=== PATIENT | male | born 1955 | race Caucasian/White ===

== ENCOUNTER 2020-04-28 11:53 | Inpatient (IN) | payer OTHER, SELFPAY ==
[~2020-04-28] VITALS: Ht 172.7 cm; Wt 88.5 kg
[2020-04-28 05:48] VITALS: BP 118/65
[2020-04-28 12:11] VITALS: BP 123/66
[2020-04-28] MEDS ORDERED: LACTATED RINGERS 1,000 ML IV ONE (13:00)
[2020-04-28 13:23] LABS: BASOPHILS # (AUTO) 0.1 K/uL (0.00-0.22); EOSINOPHILS # (AUTO) 0.5 K/uL (0-0.4); EOSINOPHILS % (AUTO) 5.6 % (0.0-4.0); HEMATOCRIT 31.2 % (36-52); HEMOGLOBIN 10.1 g/dL (12.0-18.0); LYMPHOCYTES # (AUTO) 0.7 K/uL (2.0-11.5); LYMPHOCYTES % (AUTO) 7.4 % (20.5-51.1); MEAN CORPUSCULAR HEMOGLOBIN 28 pg (27-31); MEAN CORPUSCULAR HGB CONC 32 g/dL (33-37); MEAN CORPUSCULAR VOLUME 86.4 fL (80-94); MONOCYTES # (AUTO) 0.4 K/uL (0.8-1.0); MONOCYTES % (AUTO) 4.5 % (1.7-9.3); NEUTROPHILS # (AUTO) 7.2 K/uL (1.8-7.7); NEUTROPHILS % (AUTO) 81.5 % (42.2-75.2); PLATELET COUNT (AUTO) 430 K/uL (140-450); RED BLOOD CELL COUNT(AUTO) 3.61 MIL/uL (4.20-6.10); RED CELL DISTRIBUTION WIDTH 16.1 % (11.6-13.7); WHITE BLOOD COUNT (AUTO) 8.9 K/uL (4.8-10.8)
[2020-04-28] MEDS ORDERED: cefTRIAXone 1,000 MG VIAL ONE (13:30)
[2020-04-28 13:41] LABS: PROTHROMBIN TIME 11.1 secs (10.8-13.4)
[2020-04-28 13:44] LABS: ALBUMIN 2.4 g/dL (3.4-5.0); CARBON DIOXIDE 38.1 mmol/L (21-32); CREATININE 0.6 mg/dL (0.6-1.3); POTASSIUM 4.1 mmol/L (3.5-5.1); TOTAL BILIRUBIN 0.3 mg/dL (0.0-1.0)
[2020-04-28 14:09] LABS: APPEARANCE,URINE CLOUDY (CLEAR); BILIRUBIN,URINE NEGATIVE (NEGATIVE); BLOOD, URINE NEGATIVE (NEGATIVE); COLOR,URINE DARK YELLOW (YELLOW); LEUKOCYTE ESTERASE ,URINE NEGATIVE (NEGATIVE); NITRITE, URINE NEGATIVE (NEGATIVE); UGLUCOSE 1+ (NEGATIVE)
[2020-04-28] MEDS ORDERED: AZITHROMYCIN 500 MG in DEXTROSE 5% 250 ML IV ONE (14:55)
[2020-04-28] MEDS ORDERED: AZITHROMYCIN 500 MG INJ VIAL IV ONE (14:59)
[2020-04-28 16:07] VITALS: BP 104/62
[2020-04-28] MEDS ORDERED: ONDANSETRON 4 MG/2 ML VIAL IM/IVP PRN (17:00)
[2020-04-28] MEDS ORDERED: ACETAMINOPHEN 325 MG TAB PO PRN (17:00)
[2020-04-28] MEDS ORDERED: DOCUSATE SODIUM 100 MG GELCAP PO PRN (17:00)
[2020-04-28] MEDS ORDERED: ALBUTEROL HFA MDI 90 MCG/ACTUATION 8 GM INH PRN (17:00)
[2020-04-28] MEDS ORDERED: POTASSIUM CHLORIDE 10 MEQ TABER PO PRN (17:00)
[2020-04-28] MEDS ORDERED: DEXTROSE 50% 50 ML SYR IVP PRN (17:20)
[2020-04-28] MEDS: NACL 0.9% 1,000 ML IV SCH (17:27)
[2020-04-28 17:45] LABS: BARBITURATE, URINE NEGATIVE ng/ml (NEG <=200); BENZODIAZEPINE, URINE POSITIVE ng/mL (NEG <=200); CANNABINOID, URINE NEGATIVE ng/mL (NEG <=50); COCAINE, URINE NEGATIVE ng/mL (NEG <=300); OPIATE, URINE NEGATIVE ng/mL (NEG <=2000); PHENCYCLIDINE SCREEN,URINE NEGATIVE ng/mL (NEG <=25)
[2020-04-28 18:01] LABS: CHOL/HDL RATIO 3.8 (1-4.5); MAGNESIUM 1.5 mg/dL (1.8-2.4); PHOSPHORUS 3.1 mg/dL (2.5-4.9); THYROID STIMULATING HORMONE 1.11 uIU/mL (0.34-3.74)
[2020-04-28] MEDS ORDERED: LOVENOX 1MG/KG Q12H SUBQ SCH (21:00)
[2020-04-28 21:15] VITALS: BP 157/81
[2020-04-28] MEDS: INSULIN LISPRO SLIDING SCALE 100 UNITS/ML VIAL SUBQ PRN (21:25)
[2020-04-28] MEDS: ENOXAPARIN 100 MG/ML SYR SUBQ SCH (21:26)
[2020-04-28] MEDS: BLOOD GLUCOSE MONITORING 1 DEV DEV FS SCH (21:28)
[2020-04-28] MEDS: ZINC SULF 220 MG CAP PO SCH (22:30)
[2020-04-29] VITALS: BP 136/78
[2020-04-29] MEDS ORDERED: VANCOMYCIN 1,500 MG in DEXTROSE 5% 500 ML IV SCH (00:30)
[2020-04-29] MEDS: NACL 0.9% 1,000 ML IV SCH ×3 (03:07→23:01)
[2020-04-29] MEDS: LORazepam 2 MG/ML VIAL IM/IVP PRN ×3 (03:28→15:22)
[2020-04-29 04:00] VITALS: BP 118/65
[2020-04-29] MEDS ORDERED: PIPERACILLIN/TAZOBACTAM 3.375 GM VIAL IV ONE (04:18)
[2020-04-29] MEDS: PIPERACILLIN/TAZOBACTAM 3.375 GM in DEXTROSE 5% 50 ML IV SCH ×4 (05:01→23:01)
[2020-04-29] MEDS: INSULIN LISPRO SLIDING SCALE 100 UNITS/ML VIAL SUBQ PRN ×4 (06:24→20:47)
[2020-04-29 06:25] LABS: BASOPHILS % (AUTO) 0.6 % (0.0-2.0); EOSINOPHILS # (AUTO) 0.3 K/uL (0-0.4); EOSINOPHILS % (AUTO) 4.5 % (0.0-4.0); HEMATOCRIT 26.7 % (36-52); HEMOGLOBIN 8.6 g/dL (12.0-18.0); LYMPHOCYTES # (AUTO) 1.1 K/uL (2.0-11.5); LYMPHOCYTES % (AUTO) 14.8 % (20.5-51.1); MEAN CORPUSCULAR HEMOGLOBIN 28 pg (27-31); MEAN CORPUSCULAR HGB CONC 32 g/dL (33-37); MEAN CORPUSCULAR VOLUME 85.5 fL (80-94); MONOCYTES # (AUTO) 0.4 K/uL (0.8-1.0); NEUTROPHILS # (AUTO) 5.3 K/uL (1.8-7.7); NEUTROPHILS % (AUTO) 74.1 % (42.2-75.2); PLATELET COUNT (AUTO) 362 K/uL (140-450); RED BLOOD CELL COUNT(AUTO) 3.12 MIL/uL (4.20-6.10); RED CELL DISTRIBUTION WIDTH 16.2 % (11.6-13.7); WHITE BLOOD COUNT (AUTO) 7.2 K/uL (4.8-10.8)
[2020-04-29] MEDS: BLOOD GLUCOSE MONITORING 1 DEV DEV FS SCH ×4 (06:30→20:46)
[2020-04-29 07:31] LABS: ALBUMIN 2.1 g/dL (3.4-5.0); ANION GAP 10.5 (8-16); CREATININE 0.5 mg/dL (0.6-1.3); MAGNESIUM 1.3 mg/dL (1.8-2.4); PHOSPHORUS 3.1 mg/dL (2.5-4.9); POTASSIUM 3.5 mmol/L (3.5-5.1); TOTAL BILIRUBIN 0.4 mg/dL (0.0-1.0)
[2020-04-29 08:07] LABS: T4 (THYROXINE) 6.7 ug/dL (4.5-12.0)
[2020-04-29] MEDS ORDERED: AZITHROMYCIN 250 MG TAB PO SCH (09:00)
[2020-04-29] MEDS: VITAMIN D 400 IU TAB PO SCH (09:11)
[2020-04-29] MEDS: ENOXAPARIN 100 MG/ML SYR SUBQ SCH ×2 (09:11→20:47)
[2020-04-29] MEDS: MAG SULF 2000 MG/WATER PREMIX 50 ML IV PRN (09:11)
[2020-04-29] MEDS: ASCORBIC ACID 500 MG TAB PO SCH (09:12)
[2020-04-29] MEDS: ZINC SULF 220 MG CAP PO SCH ×2 (09:12→20:47)
[2020-04-29] MEDS: VANCOMYCIN PER PHARMACY MC SCH (10:54)
[2020-04-29] MEDS: VANCOMYCIN 1,000 MG in DEXTROSE 5% 250 ML IV SCH ×2 (10:55→18:08)
[2020-04-29 12:40] VITALS: BP 146/82
[2020-04-29 13:00] VITALS: BP 124/78
[2020-04-29 16:00] VITALS: BP 128/74
[2020-04-29 20:00] VITALS: BP 135/60
[2020-04-30] VITALS: BP 144/80
[2020-04-30] MEDS: VANCOMYCIN 1,000 MG in DEXTROSE 5% 250 ML IV SCH ×2 (01:28→09:14)
[2020-04-30 04:00] VITALS: BP 157/69
[2020-04-30] MEDS: PIPERACILLIN/TAZOBACTAM 3.375 GM in DEXTROSE 5% 50 ML IV SCH ×3 (05:12→18:11)
[2020-04-30 06:06] LABS: BASOPHILS % (AUTO) 0.3 % (0.0-2.0); EOSINOPHILS # (AUTO) 0.1 K/uL (0-0.4); EOSINOPHILS % (AUTO) 0.8 % (0.0-4.0); HEMATOCRIT 29.3 % (36-52); HEMOGLOBIN 9.4 g/dL (12.0-18.0); LYMPHOCYTES # (AUTO) 0.9 K/uL (2.0-11.5); LYMPHOCYTES % (AUTO) 7.3 % (20.5-51.1); MEAN CORPUSCULAR HEMOGLOBIN 28 pg (27-31); MEAN CORPUSCULAR HGB CONC 32 g/dL (33-37); MEAN CORPUSCULAR VOLUME 85.5 fL (80-94); MONOCYTES # (AUTO) 0.7 K/uL (0.8-1.0); MONOCYTES % (AUTO) 5.8 % (1.7-9.3); NEUTROPHILS % (AUTO) 85.8 % (42.2-75.2); PLATELET COUNT (AUTO) 391 K/uL (140-450); RED BLOOD CELL COUNT(AUTO) 3.42 MIL/uL (4.20-6.10); RED CELL DISTRIBUTION WIDTH 16.3 % (11.6-13.7); WHITE BLOOD COUNT (AUTO) 12.9 K/uL (4.8-10.8)
[2020-04-30] MEDS: BLOOD GLUCOSE MONITORING 1 DEV DEV FS SCH ×4 (06:38→21:00)
[2020-04-30] MEDS: INSULIN LISPRO SLIDING SCALE 100 UNITS/ML VIAL SUBQ PRN ×4 (06:39→22:13)
[2020-04-30 06:43] LABS: ALBUMIN 2.3 g/dL (3.4-5.0); ANION GAP 7.4 (8-16); CREATININE 0.5 mg/dL (0.6-1.3); MAGNESIUM 1.5 mg/dL (1.8-2.4); POTASSIUM 3.4 mmol/L (3.5-5.1); TOTAL BILIRUBIN 0.4 mg/dL (0.0-1.0)
[2020-04-30 08:00] VITALS: BP 132/70
[2020-04-30] MEDS: NACL 0.9% 1,000 ML IV SCH ×2 (09:12→19:00)
[2020-04-30] MEDS: ZINC SULF 220 MG CAP PO SCH (09:13)
[2020-04-30] MEDS: VITAMIN D 400 IU TAB PO SCH (09:13)
[2020-04-30] MEDS: ASCORBIC ACID 500 MG TAB PO SCH (09:13)
[2020-04-30] MEDS: ENOXAPARIN 100 MG/ML SYR SUBQ SCH (09:14)
[2020-04-30 12:00] VITALS: BP 152/81
[2020-04-30] MEDS: HYDRAGUARD CREAM TP SCH (13:00)
[2020-04-30] MEDS: GAUZE TP SCH (13:00)
[2020-04-30] MEDS: MAG SULF 2000 MG/WATER PREMIX 50 ML IV PRN (15:13)
[2020-04-30 16:00] VITALS: BP 146/85
[2020-04-30 20:00] VITALS: BP 141/81
[2020-04-30] MEDS: VANCOMYCIN HCL 1.25 GM in DEXTROSE 5% 250 ML IV SCH (22:12)
[2020-05-01] VITALS: BP 158/99
[2020-05-01] MEDS: PIPERACILLIN/TAZOBACTAM 3.375 GM in DEXTROSE 5% 50 ML IV SCH ×5 (00:35→23:45)
[2020-05-01] MEDS: HYDRAGUARD CREAM TP SCH ×2 (00:36→13:26)
[2020-05-01] MEDS: NACL 0.9% 1,000 ML IV SCH ×2 (05:02→15:00)
[2020-05-01 05:27] VITALS: BP 156/81
[2020-05-01 06:26] LABS: BASOPHILS % (AUTO) 0.1 % (0.0-2.0); EOSINOPHILS # (AUTO) 0.3 K/uL (0-0.4); EOSINOPHILS % (AUTO) 2.8 % (0.0-4.0); HEMATOCRIT 28.2 % (36-52); LYMPHOCYTES # (AUTO) 0.6 K/uL (2.0-11.5); LYMPHOCYTES % (AUTO) 6.1 % (20.5-51.1); MEAN CORPUSCULAR HEMOGLOBIN 27 pg (27-31); MEAN CORPUSCULAR HGB CONC 32 g/dL (33-37); MEAN CORPUSCULAR VOLUME 85.3 fL (80-94); MONOCYTES # (AUTO) 0.6 K/uL (0.8-1.0); MONOCYTES % (AUTO) 5.8 % (1.7-9.3); NEUTROPHILS # (AUTO) 8.8 K/uL (1.8-7.7); NEUTROPHILS % (AUTO) 85.2 % (42.2-75.2); PLATELET COUNT (AUTO) 351 K/uL (140-450); RED CELL DISTRIBUTION WIDTH 15.8 % (11.6-13.7); WHITE BLOOD COUNT (AUTO) 10.4 K/uL (4.8-10.8)
[2020-05-01] MEDS: BLOOD GLUCOSE MONITORING 1 DEV DEV FS SCH ×4 (06:41→20:52)
[2020-05-01] MEDS: INSULIN LISPRO SLIDING SCALE 100 UNITS/ML VIAL SUBQ PRN ×4 (06:42→20:54)
[2020-05-01 07:39] LABS: ANION GAP 4.5 (8-16); CARBON DIOXIDE 37.1 mmol/L (21-32); CREATININE 0.5 mg/dL (0.6-1.3); POTASSIUM 3.6 mmol/L (3.5-5.1)
[2020-05-01 07:44] LABS: MAGNESIUM 1.7 mg/dL (1.8-2.4); PHOSPHORUS 2.2 mg/dL (2.5-4.9)
[2020-05-01 08:00] VITALS: BP 159/81
[2020-05-01] MEDS: MAG SULF 2000 MG/WATER PREMIX 50 ML IV PRN (08:56)
[2020-05-01] MEDS: VANCOMYCIN PER PHARMACY MC SCH (09:00)
[2020-05-01] MEDS: ENOXAPARIN 30 MG/0.3 ML SYR SUBQ SCH (09:32)
[2020-05-01] MEDS: VANCOMYCIN HCL 1.25 GM in DEXTROSE 5% 250 ML IV SCH ×2 (11:30→20:33)
[2020-05-01 12:00] VITALS: BP 144/73
[2020-05-01] MEDS: GAUZE TP SCH (13:26)
[2020-05-01] MEDS ORDERED: MAGNESIUM OXIDE 400 MG TAB PO SCH (15:30)
[2020-05-01 16:00] VITALS: BP 146/76
[2020-05-01 20:00] VITALS: BP 146/77
[2020-05-01] MEDS: LORazepam 2 MG/ML VIAL IM/IVP PRN (20:34)
[2020-05-02] VITALS: BP 134/78
[2020-05-02] MEDS: NACL 0.9% 1,000 ML IV SCH ×3 (01:00→20:05)
[2020-05-02] MEDS: HYDRAGUARD CREAM TP SCH ×2 (02:06→13:00)
[2020-05-02 04:00] VITALS: BP 128/77
[2020-05-02] MEDS: PIPERACILLIN/TAZOBACTAM 3.375 GM in DEXTROSE 5% 50 ML IV SCH ×3 (06:16→17:31)
[2020-05-02 06:30] LABS: BASOPHILS % (AUTO) 0.3 % (0.0-2.0); EOSINOPHILS # (AUTO) 0.6 K/uL (0-0.4); EOSINOPHILS % (AUTO) 4.6 % (0.0-4.0); HEMATOCRIT 27.6 % (36-52); HEMOGLOBIN 8.9 g/dL (12.0-18.0); LYMPHOCYTES % (AUTO) 7.8 % (20.5-51.1); MEAN CORPUSCULAR HEMOGLOBIN 28 pg (27-31); MEAN CORPUSCULAR HGB CONC 32 g/dL (33-37); MEAN CORPUSCULAR VOLUME 85.2 fL (80-94); MONOCYTES # (AUTO) 0.7 K/uL (0.8-1.0); NEUTROPHILS # (AUTO) 10.1 K/uL (1.8-7.7); NEUTROPHILS % (AUTO) 81.3 % (42.2-75.2); PLATELET COUNT (AUTO) 335 K/uL (140-450); RED BLOOD CELL COUNT(AUTO) 3.24 MIL/uL (4.20-6.10); RED CELL DISTRIBUTION WIDTH 16.1 % (11.6-13.7); WHITE BLOOD COUNT (AUTO) 12.4 K/uL (4.8-10.8)
[2020-05-02] MEDS: INSULIN LISPRO SLIDING SCALE 100 UNITS/ML VIAL SUBQ PRN ×4 (06:50→20:05)
[2020-05-02] MEDS: BLOOD GLUCOSE MONITORING 1 DEV DEV FS SCH ×4 (06:50→19:54)
[2020-05-02 07:06] LABS: ANION GAP 5.8 (8-16); CARBON DIOXIDE 36.9 mmol/L (21-32); CREATININE 0.5 mg/dL (0.6-1.3); POTASSIUM 3.7 mmol/L (3.5-5.1)
[2020-05-02 07:18] LABS: MAGNESIUM 1.7 mg/dL (1.8-2.4); PHOSPHORUS 2.5 mg/dL (2.5-4.9)
[2020-05-02 08:00] VITALS: BP 157/82
[2020-05-02] MEDS: ENOXAPARIN 30 MG/0.3 ML SYR SUBQ SCH (08:25)
[2020-05-02] MEDS ORDERED: MAG SULF 2000 MG/WATER PREMIX 50 ML IV ONE (08:30)
[2020-05-02 12:00] VITALS: BP 154/89
[2020-05-02] MEDS: GAUZE TP SCH (13:00)
[2020-05-02 16:00] VITALS: BP 148/80
[2020-05-02 20:00] VITALS: BP 164/89
[2020-05-02] MEDS: ZOLPIDEM 5 MG TAB PO PRN (20:03)
[2020-05-02] MEDS: VANCOMYCIN 1,000 MG in NACL 0.9% 250 ML IV SCH (20:03)
[2020-05-02] MEDS: HYDROcodone/APAP 5/325 MG 1 TAB TAB PO PRN (21:32)
[2020-05-02] MEDS: VANCOMYCIN PER PHARMACY MC SCH (22:28)
[2020-05-03] VITALS (7 sets, daily range): BP systolic 126–168; BP diastolic 69–91
[2020-05-03] MEDS: HYDRAGUARD CREAM TP SCH ×3 (00:22→23:12)
[2020-05-03] MEDS: PIPERACILLIN/TAZOBACTAM 3.375 GM in DEXTROSE 5% 50 ML IV SCH ×5 (00:22→23:11)
[2020-05-03] MEDS: MORPHINE SULFATE 2 MG/ML SYR IVP PRN ×2 (01:22→10:10)
[2020-05-03 07:00] LABS: BASOPHILS # (AUTO) 0.1 K/uL (0.00-0.22); BASOPHILS % (AUTO) 0.5 % (0.0-2.0); EOSINOPHILS # (AUTO) 0.7 K/uL (0-0.4); EOSINOPHILS % (AUTO) 6.2 % (0.0-4.0); HEMATOCRIT 27.7 % (36-52); HEMOGLOBIN 8.9 g/dL (12.0-18.0); LYMPHOCYTES # (AUTO) 0.9 K/uL (2.0-11.5); LYMPHOCYTES % (AUTO) 8.4 % (20.5-51.1); MEAN CORPUSCULAR HEMOGLOBIN 28 pg (27-31); MEAN CORPUSCULAR HGB CONC 32 g/dL (33-37); MEAN CORPUSCULAR VOLUME 86.1 fL (80-94); MONOCYTES # (AUTO) 0.6 K/uL (0.8-1.0); MONOCYTES % (AUTO) 5.6 % (1.7-9.3); NEUTROPHILS # (AUTO) 8.3 K/uL (1.8-7.7); NEUTROPHILS % (AUTO) 79.3 % (42.2-75.2); PLATELET COUNT (AUTO) 303 K/uL (140-450); RED BLOOD CELL COUNT(AUTO) 3.22 MIL/uL (4.20-6.10); RED CELL DISTRIBUTION WIDTH 16.6 % (11.6-13.7); WHITE BLOOD COUNT (AUTO) 10.5 K/uL (4.8-10.8)
[2020-05-03] MEDS: NACL 0.9% 1,000 ML IV SCH ×2 (07:28→17:00)
[2020-05-03] MEDS: BLOOD GLUCOSE MONITORING 1 DEV DEV FS SCH ×4 (07:28→20:35)
[2020-05-03 07:46] LABS: MAGNESIUM 1.8 mg/dL (1.8-2.4); PHOSPHORUS 2.9 mg/dL (2.5-4.9)
[2020-05-03 08:00] LABS: CREATININE 0.5 mg/dL (0.6-1.3); POTASSIUM 3.5 mmol/L (3.5-5.1)
[2020-05-03] MEDS ORDERED: SEVOFLURANE 250 ML BTL INH ONE (08:40)
[2020-05-03] MEDS ORDERED: fentaNYL citrate 0.05 MG/ML VIAL ONE (08:40)
[2020-05-03 08:54] LABS: ANION GAP 6.1 (8-16); CARBON DIOXIDE 36.4 mmol/L (21-32)
[2020-05-03] MEDS: ENOXAPARIN 30 MG/0.3 ML SYR SUBQ SCH (09:00)
[2020-05-03] MEDS ORDERED: BUPIVACAINE-MPF 0.25% 30 ML VIAL INJ ONE (09:05)
[2020-05-03] MEDS: VANCOMYCIN 1,000 MG in NACL 0.9% 250 ML IV SCH ×2 (10:30→20:36)
[2020-05-03] MEDS: INSULIN LISPRO SLIDING SCALE 100 UNITS/ML VIAL SUBQ PRN ×3 (12:05→20:37)
[2020-05-03] MEDS: lisinopriL 5 MG TAB PO SCH (14:08)
[2020-05-03] MEDS: GAUZE TP SCH (14:08)
[2020-05-03] MEDS ORDERED: METOPROLOL 5 MG/5 ML VIAL IV SCH (15:25)
[2020-05-03] MEDS ORDERED: LORazepam 0.5 MG TAB PO PRN (18:05)
[2020-05-03] MEDS: METOPROLOL 25 MG TAB PO SCH (20:35)
[2020-05-03] MEDS: ZOLPIDEM 5 MG TAB PO PRN (20:36)
[2020-05-03] MEDS: HYDROcodone/APAP 5/325 MG 1 TAB TAB PO PRN (20:36)
[2020-05-03] MEDS: VANCOMYCIN PER PHARMACY MC SCH (23:12)
[2020-05-04] VITALS: BP 173/72
[2020-05-04] MEDS ORDERED: CRUSHER, PILL MC ONE (00:22)
[2020-05-04] MEDS: hydrALAZINE 10 MG TAB PO PRN ×2 (00:23→23:58)
[2020-05-04] MEDS: NACL 0.9% 1,000 ML IV SCH ×2 (00:27→13:29)
[2020-05-04 04:00] VITALS: BP 149/79
[2020-05-04] MEDS: INSULIN LISPRO SLIDING SCALE 100 UNITS/ML VIAL SUBQ PRN ×4 (05:01→20:30)
[2020-05-04] MEDS: PIPERACILLIN/TAZOBACTAM 3.375 GM in DEXTROSE 5% 50 ML IV SCH ×4 (05:01→23:06)
[2020-05-04] MEDS: BLOOD GLUCOSE MONITORING 1 DEV DEV FS SCH ×4 (05:01→20:29)
[2020-05-04] MEDS: MORPHINE SULFATE 2 MG/ML SYR IVP PRN ×2 (06:07→23:59)
[2020-05-04 07:17] LABS: BASOPHILS % (AUTO) 0.4 % (0.0-2.0); EOSINOPHILS # (AUTO) 0.6 K/uL (0-0.4); EOSINOPHILS % (AUTO) 5.6 % (0.0-4.0); HEMATOCRIT 27.2 % (36-52); HEMOGLOBIN 8.6 g/dL (12.0-18.0); LYMPHOCYTES % (AUTO) 8.4 % (20.5-51.1); MEAN CORPUSCULAR HEMOGLOBIN 28 pg (27-31); MEAN CORPUSCULAR HGB CONC 32 g/dL (33-37); MEAN CORPUSCULAR VOLUME 87.3 fL (80-94); MONOCYTES # (AUTO) 0.6 K/uL (0.8-1.0); MONOCYTES % (AUTO) 5.2 % (1.7-9.3); NEUTROPHILS # (AUTO) 9.3 K/uL (1.8-7.7); NEUTROPHILS % (AUTO) 80.4 % (42.2-75.2); PLATELET COUNT (AUTO) 279 K/uL (140-450); RED BLOOD CELL COUNT(AUTO) 3.12 MIL/uL (4.20-6.10); RED CELL DISTRIBUTION WIDTH 16.7 % (11.6-13.7); WHITE BLOOD COUNT (AUTO) 11.5 K/uL (4.8-10.8)
[2020-05-04 07:27] LABS: ANION GAP 4.4 (8-16); CARBON DIOXIDE 38.1 mmol/L (21-32); CREATININE 0.5 mg/dL (0.6-1.3); POTASSIUM 3.5 mmol/L (3.5-5.1)
[2020-05-04 07:29] LABS: MAGNESIUM 1.7 mg/dL (1.8-2.4); PHOSPHORUS 2.4 mg/dL (2.5-4.9)
[2020-05-04 08:00] VITALS: BP 125/83
[2020-05-04] MEDS: VANCOMYCIN 1,000 MG in NACL 0.9% 250 ML IV SCH ×2 (09:26→20:29)
[2020-05-04] MEDS: lisinopriL 5 MG TAB PO SCH (09:26)
[2020-05-04] MEDS: METOPROLOL 25 MG TAB PO SCH ×2 (09:26→20:30)
[2020-05-04] MEDS: ENOXAPARIN 30 MG/0.3 ML SYR SUBQ SCH (09:27)
[2020-05-04 12:00] VITALS: BP 125/83
[2020-05-04] MEDS: GAUZE TP SCH (12:25)
[2020-05-04] MEDS ORDERED: POLYETHYLENE GLYCOL 17 GM/PKT GT SCH (12:25)
[2020-05-04] MEDS ORDERED: DOCUSATE 100 MG/10 ML UDC GT SCH (12:25)
[2020-05-04] MEDS: HYDRAGUARD CREAM TP SCH (12:25)
[2020-05-04] MEDS: MAG SULF 2000 MG/WATER PREMIX 50 ML IV PRN (13:31)
[2020-05-04 16:00] VITALS: BP 145/86
[2020-05-04] MEDS: VANCOMYCIN PER PHARMACY MC SCH (19:47)
[2020-05-04 20:00] VITALS: BP 159/67
[2020-05-05] VITALS (7 sets, daily range): BP systolic 107–171; BP diastolic 45–79
[2020-05-05] MEDS: HYDRAGUARD CREAM TP SCH ×2 (00:06→13:00)
[2020-05-05] MEDS: NACL 0.9% 1,000 ML IV SCH ×2 (03:12→09:36)
[2020-05-05] MEDS: BLOOD GLUCOSE MONITORING 1 DEV DEV FS SCH ×4 (05:15→20:26)
[2020-05-05] MEDS: PIPERACILLIN/TAZOBACTAM 3.375 GM in DEXTROSE 5% 50 ML IV SCH ×4 (05:15→23:12)
[2020-05-05] MEDS: INSULIN LISPRO SLIDING SCALE 100 UNITS/ML VIAL SUBQ PRN (05:16)
[2020-05-05 06:26] LABS: BASOPHILS % (AUTO) 0.4 % (0.0-2.0); EOSINOPHILS # (AUTO) 0.4 K/uL (0-0.4); EOSINOPHILS % (AUTO) 3.9 % (0.0-4.0); HEMATOCRIT 26.1 % (36-52); HEMOGLOBIN 8.4 g/dL (12.0-18.0); LYMPHOCYTES # (AUTO) 0.9 K/uL (2.0-11.5); LYMPHOCYTES % (AUTO) 7.8 % (20.5-51.1); MEAN CORPUSCULAR HEMOGLOBIN 28 pg (27-31); MEAN CORPUSCULAR HGB CONC 32 g/dL (33-37); MEAN CORPUSCULAR VOLUME 85.8 fL (80-94); MONOCYTES # (AUTO) 0.7 K/uL (0.8-1.0); MONOCYTES % (AUTO) 5.8 % (1.7-9.3); NEUTROPHILS # (AUTO) 9.3 K/uL (1.8-7.7); NEUTROPHILS % (AUTO) 82.1 % (42.2-75.2); PLATELET COUNT (AUTO) 258 K/uL (140-450); RED BLOOD CELL COUNT(AUTO) 3.04 MIL/uL (4.20-6.10); RED CELL DISTRIBUTION WIDTH 16.7 % (11.6-13.7); WHITE BLOOD COUNT (AUTO) 11.3 K/uL (4.8-10.8)
[2020-05-05 06:55] LABS: ANION GAP 7.3 (8-16); CARBON DIOXIDE 36.1 mmol/L (21-32); CREATININE 0.5 mg/dL (0.6-1.3); POTASSIUM 3.4 mmol/L (3.5-5.1)
[2020-05-05 06:59] LABS: MAGNESIUM 1.8 mg/dL (1.8-2.4); PHOSPHORUS 2.4 mg/dL (2.5-4.9)
[2020-05-05] MEDS ORDERED: POTASSIUM CHLORIDE 20% 40 MEQ/15 ML UDC GT PRN (08:20)
[2020-05-05] MEDS: DOCUSATE 100 MG/10 ML UDC GT SCH (09:00)
[2020-05-05] MEDS: VANCOMYCIN PER PHARMACY MC SCH (09:00)
[2020-05-05] MEDS: METOPROLOL 25 MG TAB PO SCH (09:17)
[2020-05-05] MEDS: lisinopriL 5 MG TAB PO SCH (09:18)
[2020-05-05] MEDS ORDERED: bisacodyL 10 MG SUPP RC SCH (09:35)
[2020-05-05] MEDS: ENOXAPARIN 30 MG/0.3 ML SYR SUBQ SCH (09:35)
[2020-05-05] MEDS: VANCOMYCIN 1,000 MG in NACL 0.9% 250 ML IV SCH ×2 (09:40→20:11)
[2020-05-05] MEDS: POLYETHYLENE GLYCOL 17 GM/PKT GT SCH (09:49)
[2020-05-05] MEDS: THERAHONEY GEL 42.5 GM TP SCH (13:00)
[2020-05-05] MEDS: GAUZE TP SCH (13:00)
[2020-05-05] MEDS: METOPROLOL 50 MG TAB PO SCH (20:11)
[2020-05-05] MEDS: MORPHINE SULFATE 2 MG/ML SYR IVP PRN (20:13)
[2020-05-06] VITALS (7 sets, daily range): BP systolic 135–176; BP diastolic 62–98
[2020-05-06] MEDS: HYDRAGUARD CREAM TP SCH ×2 (03:37→13:13)
[2020-05-06] MEDS: MORPHINE SULFATE 2 MG/ML SYR IVP PRN (04:53)
[2020-05-06] MEDS: NACL 0.9% 1,000 ML IV SCH ×2 (05:30→23:29)
[2020-05-06] MEDS: PIPERACILLIN/TAZOBACTAM 3.375 GM in DEXTROSE 5% 50 ML IV SCH ×4 (05:35→23:28)
[2020-05-06 06:25] LABS: BASOPHILS % (AUTO) 0.5 % (0.0-2.0); EOSINOPHILS # (AUTO) 0.6 K/uL (0-0.4); EOSINOPHILS % (AUTO) 6.8 % (0.0-4.0); HEMATOCRIT 26.7 % (36-52); HEMOGLOBIN 8.6 g/dL (12.0-18.0); LYMPHOCYTES # (AUTO) 0.9 K/uL (2.0-11.5); LYMPHOCYTES % (AUTO) 10.4 % (20.5-51.1); MEAN CORPUSCULAR HEMOGLOBIN 28 pg (27-31); MEAN CORPUSCULAR HGB CONC 32 g/dL (33-37); MEAN CORPUSCULAR VOLUME 85.7 fL (80-94); MONOCYTES # (AUTO) 0.6 K/uL (0.8-1.0); MONOCYTES % (AUTO) 6.5 % (1.7-9.3); NEUTROPHILS # (AUTO) 6.8 K/uL (1.8-7.7); NEUTROPHILS % (AUTO) 75.8 % (42.2-75.2); PLATELET COUNT (AUTO) 270 K/uL (140-450); RED BLOOD CELL COUNT(AUTO) 3.12 MIL/uL (4.20-6.10); RED CELL DISTRIBUTION WIDTH 16.9 % (11.6-13.7); WHITE BLOOD COUNT (AUTO) 8.9 K/uL (4.8-10.8)
[2020-05-06] MEDS: BLOOD GLUCOSE MONITORING 1 DEV DEV FS SCH ×4 (06:32→20:58)
[2020-05-06] MEDS: INSULIN LISPRO SLIDING SCALE 100 UNITS/ML VIAL SUBQ PRN ×4 (06:34→21:00)
[2020-05-06 06:40] LABS: ANION GAP 5.4 (8-16); CARBON DIOXIDE 38.6 mmol/L (21-32); CREATININE 0.6 mg/dL (0.6-1.3)
[2020-05-06] MEDS: DOCUSATE 100 MG/10 ML UDC GT SCH (08:24)
[2020-05-06] MEDS: METOPROLOL 50 MG TAB PO SCH ×2 (08:24→20:23)
[2020-05-06] MEDS: lisinopriL 5 MG TAB PO SCH (08:25)
[2020-05-06] MEDS: POLYETHYLENE GLYCOL 17 GM/PKT GT SCH (08:25)
[2020-05-06] MEDS: ENOXAPARIN 30 MG/0.3 ML SYR SUBQ SCH (08:26)
[2020-05-06] MEDS: VANCOMYCIN 1,000 MG in NACL 0.9% 250 ML IV SCH ×2 (08:36→20:22)
[2020-05-06] MEDS: VANCOMYCIN PER PHARMACY MC SCH (08:43)
[2020-05-06] MEDS: THERAHONEY GEL 42.5 GM TP SCH (13:13)
[2020-05-06] MEDS: GAUZE TP SCH (13:13)
[2020-05-07] VITALS: BP 125/74
[2020-05-07] MEDS: HYDRAGUARD CREAM TP SCH ×2 (01:55→13:00)
[2020-05-07 04:00] VITALS: BP 136/78
[2020-05-07] MEDS: PIPERACILLIN/TAZOBACTAM 3.375 GM in DEXTROSE 5% 50 ML IV SCH ×3 (05:22→18:00)
[2020-05-07] MEDS: BLOOD GLUCOSE MONITORING 1 DEV DEV FS SCH ×4 (06:30→21:54)
[2020-05-07] MEDS: INSULIN LISPRO SLIDING SCALE 100 UNITS/ML VIAL SUBQ PRN ×4 (06:31→22:00)
[2020-05-07 07:35] LABS: BASOPHILS % (AUTO) 0.4 % (0.0-2.0); EOSINOPHILS # (AUTO) 0.6 K/uL (0-0.4); HEMATOCRIT 25.5 % (36-52); HEMOGLOBIN 8.2 g/dL (12.0-18.0); LYMPHOCYTES # (AUTO) 1.1 K/uL (2.0-11.5); LYMPHOCYTES % (AUTO) 10.5 % (20.5-51.1); MEAN CORPUSCULAR HEMOGLOBIN 28 pg (27-31); MEAN CORPUSCULAR HGB CONC 32 g/dL (33-37); MONOCYTES # (AUTO) 0.7 K/uL (0.8-1.0); MONOCYTES % (AUTO) 6.7 % (1.7-9.3); NEUTROPHILS # (AUTO) 7.8 K/uL (1.8-7.7); NEUTROPHILS % (AUTO) 76.4 % (42.2-75.2); PLATELET COUNT (AUTO) 265 K/uL (140-450); RED BLOOD CELL COUNT(AUTO) 2.97 MIL/uL (4.20-6.10); RED CELL DISTRIBUTION WIDTH 17.2 % (11.6-13.7); WHITE BLOOD COUNT (AUTO) 10.2 K/uL (4.8-10.8)
[2020-05-07 07:39] LABS: CARBON DIOXIDE 38.7 mmol/L (21-32); CREATININE 0.6 mg/dL (0.6-1.3); POTASSIUM 3.7 mmol/L (3.5-5.1)
[2020-05-07 08:00] VITALS: BP 151/82
[2020-05-07] MEDS: VANCOMYCIN PER PHARMACY MC SCH (09:00)
[2020-05-07] MEDS: ENOXAPARIN 30 MG/0.3 ML SYR SUBQ SCH (09:28)
[2020-05-07] MEDS: DOCUSATE 100 MG/10 ML UDC GT SCH (09:33)
[2020-05-07] MEDS: POLYETHYLENE GLYCOL 17 GM/PKT GT SCH (09:34)
[2020-05-07] MEDS: lisinopriL 5 MG TAB PO SCH (09:34)
[2020-05-07] MEDS: METOPROLOL 50 MG TAB PO SCH ×2 (09:35→21:52)
[2020-05-07 12:00] VITALS: BP 125/77
[2020-05-07] MEDS: GAUZE TP SCH (13:00)
[2020-05-07] MEDS: THERAHONEY GEL 42.5 GM TP SCH (13:00)
[2020-05-07 16:00] VITALS: BP 132/75
[2020-05-07] MEDS: HYDROcodone/APAP 5/325 MG 1 TAB TAB PO PRN (18:07)
[2020-05-07 21:30] VITALS: BP 134/45
[2020-05-07] MEDS: NACL 0.9% 1,000 ML IV SCH (21:50)
[2020-05-08] VITALS: BP 126/67
[2020-05-08] MEDS: HYDRAGUARD CREAM TP SCH ×2 (01:22→12:09)
[2020-05-08 05:11] VITALS: BP 134/76
[2020-05-08] MEDS: HYDROcodone/APAP 5/325 MG 1 TAB TAB PO PRN (05:11)
[2020-05-08] MEDS: INSULIN LISPRO SLIDING SCALE 100 UNITS/ML VIAL SUBQ PRN ×2 (07:09→11:18)
[2020-05-08 07:38] LABS: BASOPHILS % (AUTO) 0.4 % (0.0-2.0); EOSINOPHILS # (AUTO) 0.7 K/uL (0-0.4); HEMATOCRIT 24.6 % (36-52); LYMPHOCYTES % (AUTO) 9.8 % (20.5-51.1); MEAN CORPUSCULAR HEMOGLOBIN 28 pg (27-31); MEAN CORPUSCULAR HGB CONC 33 g/dL (33-37); MEAN CORPUSCULAR VOLUME 86.3 fL (80-94); MONOCYTES # (AUTO) 0.7 K/uL (0.8-1.0); MONOCYTES % (AUTO) 6.6 % (1.7-9.3); NEUTROPHILS # (AUTO) 7.7 K/uL (1.8-7.7); NEUTROPHILS % (AUTO) 76.2 % (42.2-75.2); PLATELET COUNT (AUTO) 257 K/uL (140-450); RED BLOOD CELL COUNT(AUTO) 2.85 MIL/uL (4.20-6.10); RED CELL DISTRIBUTION WIDTH 16.8 % (11.6-13.7); WHITE BLOOD COUNT (AUTO) 10.1 K/uL (4.8-10.8)
[2020-05-08] MEDS: BLOOD GLUCOSE MONITORING 1 DEV DEV FS SCH ×2 (07:42→11:18)
[2020-05-08 07:58] LABS: ANION GAP 5.9 (8-16); CREATININE 0.5 mg/dL (0.6-1.3); POTASSIUM 3.9 mmol/L (3.5-5.1)
[2020-05-08 08:00] VITALS: BP 154/68
[2020-05-08] MEDS: POLYETHYLENE GLYCOL 17 GM/PKT GT SCH (09:14)
[2020-05-08] MEDS: DOCUSATE 100 MG/10 ML UDC GT SCH (09:14)
[2020-05-08] MEDS: METOPROLOL 50 MG TAB PO SCH (09:15)
[2020-05-08] MEDS: lisinopriL 5 MG TAB PO SCH (09:15)
[2020-05-08] MEDS: VANCOMYCIN PER PHARMACY MC SCH (09:15)
[2020-05-08] MEDS: ENOXAPARIN 30 MG/0.3 ML SYR SUBQ SCH (09:15)
[2020-05-08] MEDS ORDERED: PIPE1SOL IV (10:54)
[2020-05-08] MEDS ORDERED: IV Vancomycin IV (10:54)
[2020-05-08] MEDS ORDERED: LISI5TAB18 PO (10:54)
[2020-05-08] MEDS ORDERED: METO25TA PO (10:54)
[2020-05-08] MEDS ORDERED: VANCOMYCIN IV SCH (11:00)
[2020-05-08] MEDS ORDERED: VANCOMYCIN 1,000 MG in DEXTROSE 5% 250 ML IV SCH ×4 (11:00)
[2020-05-08] MEDS ORDERED: DEXTROSE 5% IV SCH (11:00)
[2020-05-08] MEDS ORDERED: VANCOMYCIN 1GM/DEXT 5% PREMIX 200 ML IV SCH (11:00)
[2020-05-08 12:00] VITALS: BP 140/65
[2020-05-08] MEDS ORDERED: PIPERACILLIN/TAZOBACTAM 3.375 GM in DEXTROSE 5% 50 ML IV SCH (12:00)
[2020-05-08] MEDS: GAUZE TP SCH (12:09)
[2020-05-08] MEDS: THERAHONEY GEL 42.5 GM TP SCH (12:09)
== END 2020-05-08 15:16 | DRG 853 ==
LOC: MED 11:53 → MTU 17:09
PROC: 5A1955Z Respiratory Ventilation, Greater than 96 Consecutive Hours (ICD-10-PCS; principal; 2020-04-28)
PROC: 0JB70ZZ Excision of Back Subcutaneous Tissue and Fascia, Open Approach (ICD-10-PCS; 2020-05-03)
PROC: 0X9H0ZZ Drainage of Left Wrist Region, Open Approach (ICD-10-PCS; 2020-05-03)
DX: A41.9 Sepsis, unspecified organism (principal); J18.9 Pneumonia, unspecified organism; J96.21 Acute and chronic respiratory failure with hypoxia; E43 Unspecified severe protein-calorie malnutrition; E11.52 Type 2 diabetes mellitus with diabetic peripheral angiopathy with gangrene; G93.40 Encephalopathy, unspecified; E87.4 Mixed disorder of acid-base balance; E87.0 Hyperosmolality and hypernatremia; E87.1 Hypo-osmolality and hyponatremia; L02.413 Cutaneous abscess of right upper limb; J90 Pleural effusion, not elsewhere classified; I10 Essential (primary) hypertension; Y95 Nosocomial condition; Z20.822 Contact with and (suspected) exposure to COVID-19; E86.0 Dehydration; D64.9 Anemia, unspecified; E83.42 Hypomagnesemia; E11.65 Type 2 diabetes mellitus with hyperglycemia; E83.39 Other disorders of phosphorus metabolism; K80.20 Calculus of gallbladder without cholecystitis without obstruction; Z86.16 Personal history of COVID-19; R31.9 Hematuria, unspecified; R13.10 Dysphagia, unspecified; Z68.29 Body mass index [BMI] 29.0-29.9, adult; Z93.1 Gastrostomy status; Z93.0 Tracheostomy status; Z83.3 Family history of diabetes mellitus; Z82.49 Family history of ischemic heart disease and other diseases of the circulatory system
CPT/HCPCS: 36415; 36600; 71045; 71275; 73130; 76770; 76881; 80048; 80053; 80202; 80305; 81003; 82150; 82803; 82948; 83036; 83605; 83615; 83690; 83735; 83880; 84100; 84134; 84436; 84443; 84484; 85025; 85379; 85610; 85651; 85730; 86140; 87040; 87070; 87081; 87086; 87205; 88304; 93005; 94002; 94003; 96365; 96366; 96367; 99291; C1758; J0456; J0696; J1650; J1815; J2060; J2270; J2543; J3010; J3370; J3475; J3490; J7030; J7060; J7120; Q9967; U0003